=== PATIENT | female | born 1990 | race Caucasian/White ===

== ENCOUNTER 2021-10-03 09:19 | Outpatient (REF) | payer OTHER, SELFPAY ==
--- NOTE | 2021-10-03 13:19 | MHC.AU.HAS ---
Hearing Aid Evaluation Date of Visit: 10/03/21 Historical Information: Description of Hearing: Right Ear - Normal hearing thresholds 250, 500, 4000, and 6000 Hz with borderline normal to mild sensorineural hearing loss 8029-4238 and 8000 Hz. Left Ear - Normal hearing levels 250, 500, and 4000 Hz with borderline normal to mild sensorineural hearing loss 8364-8381 and 4477-8402 Hz. Current personal amplification information, if applicable: NONE Summary: Patient was assessed by ENT of 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 Hearing Aid Prescription: Based on the individual?s shared listening needs, communication environments, dexterity, desire for connectivity, and personal preferences, the following prescription for amplification has been made: Right ear: Archeology Professor: ReSound Model: ReSound One 7 [id number] Battery Size: Rechargeable Color: Black Wafer Mounter: #1 standard M&AMARA Type of Dome: Small Open Left ear: Left ear prescription to be same as Right Hearing Aid above: Archeology Professor: ReSound Model: ReSound One 7 [id number] Battery Size: Rechargeable Color: Black Wafer Mounter: #1 standard M&AMARA Type of Dome: Small Open Plan of Care: Patient wishes to purchase hearing aids as prescribed Action Taken/Action Needed: Medical Clearance from ENT in chart Hearing Instrument Fitting to be scheduled when materials arrive Primary Diagnosis: H90.3 Bilateral Sensorineural Hearing Loss Signature:Provider: Sherwin Juarez, YANET-A
== END 2021-10-03 09:20 | disposition home or self-care (01) ==
LOC: HO.HAP 09:19
PROVIDERS: Visit Provider Internal Medicine
DX: Z46.1 Encounter for fitting and adjustment of hearing aid (principal); H90.3 Sensorineural hearing loss, bilateral
CPT/HCPCS: 92591

== ENCOUNTER 2021-10-17 09:23 | Outpatient (REF) | payer OTHER, SELFPAY | END 2021-10-17 09:24 | disposition home or self-care (01) | LOC: HO.HAP 09:23 | PROVIDERS: Visit Provider Otolaryngology | DX: Z46.1 Encounter for fitting and adjustment of hearing aid (principal); H90.3 Sensorineural hearing loss, bilateral | CPT/HCPCS: V5011; V5020; V5160; V5261 ==

== ENCOUNTER 2021-10-18 11:18 | Outpatient (REF) | payer OTHER, SELFPAY | END 2021-10-18 11:19 | disposition home or self-care (01) | LOC: HO.HAP 11:18 | PROVIDERS: Visit Provider Internal Medicine | DX: Z13.89 Encounter for screening for other disorder (principal) ==

== ENCOUNTER → 2022-07-10 09:03 | Outpatient (BNVA) | payer OTHER, SELFPAY | PROVIDERS: PCP Internal Medicine; Visit Provider Physician Assistant Medical | DX: Z13.89 Encounter for screening for other disorder (principal) | CPT/HCPCS: 29125; 73110; 99202; 99203 ==

== ENCOUNTER → 2022-07-11 10:56 | Outpatient (BNVA) | payer OTHER, SELFPAY | PROVIDERS: PCP Internal Medicine; Visit Provider Physician Assistant | DX: S60.211A Contusion of right wrist, initial encounter (principal) | CPT/HCPCS: 99212 ==

== ENCOUNTER → 2022-08-23 15:03 | Outpatient (BNVA) | payer OTHER, SELFPAY | PROVIDERS: PCP Internal Medicine; Visit Provider Physician Assistant Medical | DX: Z13.89 Encounter for screening for other disorder (principal) | CPT/HCPCS: 99213 ==

== ENCOUNTER → 2023-04-10 10:27 | Outpatient (BNV) | payer OTHER, SELFPAY | PROVIDERS: PCP Internal Medicine; Visit Provider Internal Medicine | DX: D50.9 Iron deficiency anemia, unspecified (principal); E53.8 Deficiency of other specified B group vitamins | CPT/HCPCS: 99204 ==

== ENCOUNTER 2025-03-31 12:15 | Outpatient (AMB) | payer OTHER, SELFPAY ==
--- NOTE | 2025-03-31 12:34 | A.OFFVIS_ITS ---
VS Expanded 03/31/25 21:11 Height 5 ft 5 in Weight 167 lb BMI 27.8 Intake Visit Reasons: Vitamin D deficiency Allergies coconut Allergy (Verified 04/10/23 10:38) Vomiting diphenhydramine (From Benadryl) Allergy (Verified 01/27/23 12:53) vomiting escitalopram (From Lexapro) Allergy (Verified 04/10/23 10:38) Itching nectarine Allergy (Verified 04/10/23 10:38) Anaphylaxis peach Allergy (Verified 04/10/23 10:38) Anaphylaxis ferrous sulfate Adverse Reaction (Verified 04/10/23 10:38) Constipation latex Adverse Reaction (Verified 01/27/23 12:53) Itching Nutrition Presentation Details: Pt presents for MNT for vitamin D deficiency, Pt reports having diagnosis of celiac disease and needs education on diet concepts , has multiple questions related to gluten free food options Pt reports having hx of vitamin deficiencies (b, d, and iron) ALI-Kfoeqol-Fi.Jeor Equation Height: 5 ft 5 in Weight: 167 lb Resting Metabolic Rate: 1455.42 Calculated Activity Level: Mild Activity Calories Needed to Maintain Weight: 2001. Diagnosis Nutrition problem #1: food nutri know defi As related to (etiology) #1: diagnosis As evidenced by (sign/symptom) #1: knowledge deficit of diet [facility] Medical History (Updated 03/31/25 @ 21:13 by Mariia Stiles, RD, LDN) Iron deficiency anemia Vitamin D deficiency Vitamin B deficiency Anxiety and depression LILIYA III (cervical intraepithelial neoplasia III) Anemia Surgical History (Updated 04/10/23 @ 11:24 by Carolee Burciaga MD) H/O LEEP Family History (Updated 04/10/23 @ 11:18 by Marcelina Del Rosario) Father HTN (hypertension) Gluten free diet Mother HTN (hypertension) GERD (gastroesophageal reflux disease) Anemia Endometriosis Paternal Grandfather HTN (hypertension) Heart attack Maternal Grandmother HTN (hypertension) Breast cancer Maternal Uncle HTN (hypertension) Paternal Grandmother Diabetes Paternal Aunt Diabetes Family/Other Diabetes Paternal Grandfather Heart attack Social History (Updated 04/10/23 @ 10:37 by Marcelina Del Rosario) Household Members: Family Housing: Apartment Patient Tobacco Use Status: Never used Tobacco service: No Current occupational status: employed Assessment & Plan Assessment & Plan (1) Celiac disease: Code(s): K90.0 - Celiac disease Category: Medical Plan: Wt: 76 Kg ( 04/23 ) Est kcal needs as per MSJ: 1700 (40% carb, 30% protein/fat) Est fluid needs as per 25-30 ml/d: 2300 Est prot per day as per 1 g/kg bw: 80 Recommend fiber intake : 8-10 g per day and gradually increase to 25-28 g per day for women and 35-38 g for men or as tolerated Recommend sodium intake per day : less than 2300 mg Educated patient on: ( R = reviewed V = verbalizes understanding N/R = needs review N/A = not applicable * Gluten free diet concepts * Celiac disease, nutrient deficiencies and gluten free diet concepts Patient Instructions: Must avoid and eliminate all gluten containing foods and its derivatives (see list printed) Avoid cross contamination (including but not limited to using same cutting board, toaster, double dipping , frying in the same oil) Consider buying a bread maker see [address] [place] gluten free meal plan as reference Coding Level of Care Code Nutr Indiv Intake (10420) Diagnoses Celiac disease K90.0 Time Spent (min) 30
--- OUTSIDE RECORDS SUMMARY | 2025-03-31 13:29 | XMS_ITS ---
Author Name [facility] Organization Unknown Care Team Organization Name Specialty Phone Email Start Date End Da te [facility] VALERIE SCOTT Primary Care 06/06/2022
--- OUTSIDE RECORDS SUMMARY | 2025-03-31 13:29 | XMS_ITS | Clinical Summary ---
Author Organization [facility] [address] [place] [address] [place] [id number] Phone Care Team Providers Care Weave Room Supervisor Name Role Phone Laquita Gar MD Primary Care Provider [phone] Allergies Active Allergy Reactions Criticality Noted Date Comments Apple 10/12/2023 Escitalopram Oxalate Hives 12/31/2018 Food Allergy Formula Wheezing High 02/05/2023 nectarine Latex Hives 06/11/2012 Other Hives,Nausea And Vomiting 06/11/2012 Codeine Phospate; Benadryl Medications syringe w-needle,disposab, 3 mL (BD INTEGRA SYRINGE MISC) DIRECTED 06/13/20 23 Active blood-glucose meter kit 1 (one) time each day. 07/18/20 23 Active FREESTYLE LANCETS MISC 1 (one) time each day. 07/18/20 23 Active blood sugar diagnostic (FreeStyle Lite Strips) test strip 1 (one) time each day. 07/18/20 23 Active cyanocobalamin (VITAMIN B-12) 1,000 mcg/mL injection Inject 1 mL (1,000 mcg total) into the shoulder, thigh, or buttocks every 30 (thirty) days. Vitamin B12 1000 mcg q week x 4 weeks then q month 04/10/20 23 Active EPINEPHrine (EpiPen 2-Kameron) 0.3 mg/0.3 mL injection Inject 0.3 mL (0.3 mg total) into the thigh if needed for anaphylaxis. 2-pack. Fill with whichever brand is covered by insurance. 02/06/20 23 Active levonorgestreL (Mirena) 21 mcg/24 hr (8 yrs) 52 mg IUD by intrauterine route. Active meclizine (ANTIVERT) 25 mg tablet Take 1 tablet (25 mg total) by mouth 1 (one) time each day if needed (vertigo). 02/11/20 24 Active fluticasone propionate (FLONASE) 50 mcg/actuation nasal spray Administer 2 sprays into each nostril 1 (one) time each day. Shake gently. Before first use, prime pump. After use, clean tip and replace cap. Active scopolamine (TRANSDERM-SCOP) 1 mg over 3 days patch 3 day Apply 1 patch topically every 3rd (third) day. Can cause drowsiness- do not drive or operate heavy machinery 5 patch 07/04/20 24 Active cholecalciferol (VITAMIN D-3) 1,250 mcg (50,000 unit) capsule Take 1 capsule (50,000 Units total) by mouth 1 (one) time per week. 12 capsule 08/14/19 25 Active ondansetron ODT (ZOFRAN-ODT) 4 mg disintegrating tablet Dissolve 1 tablet (4 mg total) on top of the tongue every 8 (eight) hours if needed for nausea or vomiting. 30 tablet 1 11/13/19 25 Active multivitamin with iron-minerals 9 mg iron/15 mL liquid Take 15 mL by mouth 1 (one) time each day. Active polycarbophil (FIBERCON) 625 mg tablet Take by mouth 1 (one) time each day. Active esomeprazole (NexIUM) [address] capsule Take 1 capsule (20 mg total) by mouth 2 (two) times a day. Do not open capsule. 60 each 3 12/24/19 25 026 Active omeprazole (PriLOSEC) [address] capsule Take 1 capsule (20 mg total) by mouth 1 (one) time each day. Do not crush or chew. 30 each 3 12/24/19 25 026 Active loratadine (CLARITIN) 10 mg tablet TAKE 1 TABLET BY MOUTH EVERY DAY 90 tablet 1 01/28/20 25 Active Active Problems Problem Noted Date Diagnosed Date Gastroesophageal reflux disease 08/13/2024 Right upper quadrant pain 05/05/2024 Nausea 05/05/2024 Prediabetes 06/12/2023 B12 deficiency 06/12/2023 Vitamin D deficiency 09/17/2018 Palpitations 10/21/2017 Overview (05/05/2024): Holter monitor (10/17/17): NSR, with sinus bradycardia, and sinus arrhythmia, HR range 41-152 bpm , avg 69 BPM. Occasinal PAC's with rare atrial pairs. No PVC's. Anxiety and depression 08/22/2016 LILIYA III (cervical intraepithelial neoplasia III) 02/12/2015 Overview (05/05/2024): Last PAP 01/2020 ACUS +ve HPV Encounters Date Type Department Care Team Description 02/27/2025 9:30 AM EDT Office Visit Orthopedic Surgery - [place] [address] [place] [address] Evangelina Butterfield PA Right elbow pain (Primary Dx) 02/24/2025 Telephone Gastroenterology - [place] [address] [place] [address] Jesi Pena MA from Last 3 Months Immunizations Name Administration Dates Next Due DTP 12/06/2001, 5,10/01/1991,1990,1990,1990 [id number]-[id number] (Pentacel) 2mo to less than 5yo 07/16/1991,01/07/1991,1990,1990 HPV, Quadrivalent 04/23/2007,12/25/2006,10/26/19 07 Hepatitis B Pediatric (Enger ix B; Recombivax HB) to less than 20 yo 11/13/2000,11/01/1999,09/27/1999 IPV Inactivated polio (Ipol) 6wks and older 09/06/1994,10/01/1991,1990,1989 Influenza Quadravalent, MDCK , 0.5ml, preservative free (Flucelvax) 6mo and older 10/18/2018 Influenza trivalent, with preservative (Fluzone; Afluria) 6mo and older 06/03/2008 Influenza, Unspecified 06/11/2023,09/13/2016,06/2016 MMR, measles mumps and rubel la Live (Priorix; M-M-R II) 12mo and older 09/06/1994,07/16/1991 PPD Test 02/12/2015,10/02/2012 Pfizer SARS-CoV-2 COVID-19, mRNA, LNP-S, preservative free 08/12/2021,07/19/2021 Tdap Tetanus diptheria acell ular pertussis (Boostrix; Adacel) 7yo and older 06/03/2011 Surgical History Surgery Date Site/Laterality Comments OTHER SURGICAL HISTORY PROCEDURE: CERVICAL BIOPSY [facility] PATHOLOGY EXAM OTHER SURGICAL HISTORY PROCEDURE: CERVICAL LEEP CONE BIOPSY [facility] PATHOLOGY EX; COMMENT: 2018 Medical History Medical History Date Comments Carcinoma in situ of cervix uteri DX:Carcinoma in situ of cervix uteri; COMMENT: removed with biopsy, receives 6 month paps DX:; CO MMENT: 17 weeks Anxiety state DX:Anxiety state Depressive disorder DX:Depressiv e disorder Nausea DX:Nausea Right upper quadrant pain DX:Rig ht upper quadrant pain Right upper quadrant pain DX:Rig ht upper quadrant pain Nausea and vomiting DX:Nausea an d vomiting Gastroesophageal reflux disease 08/13/2024 Allergic rhinitis Headache HL (hearing loss) Family History Medical History Relation Name Comments Mental illness Brother Magen bipolar Asthma Daughter 1 Laura Hypertension Father James gluten allergy Breast cancer Maternal Grandmother [place] Other cancer Mother thyroid ca, hys teroctomy, gastric bypass, htn, Diabetes Other mulitple aunts Lung cancer Paternal Grandfather cigaret te smoking Diabetes Paternal Grandmother Esmer Eczema Son Relation Name Status Comments Brother Magen Alive Daughter 1 Laura Alive Daughter 2 Alive Father James Alive Maternal Grandfather Alive Maternal Grandmother [place] Mother Alive Other Paternal Grandfather Paternal Grandmother Esmer Son Alive Social History Tobacco Use Types Packs/Day Years Used Date Smoking Tobacco: Former Cigarettes Q uit: 02/13/2012 Smokeless Tobacco: Never Tobacco Cessation:Counseling Given: Not Answered Alcohol Use Standard Drinks/Week Comments No 0 (1 standard drink = 0.6 oz pur e alcohol) Housing Instability Answer Date Recorde d Are you worried that in the next 2 months you may not have stable housing? No 12/02/2024 Food Access & Nutrition Answer Date Rec orded Do you have access to a vari ety of food including fruits and vegetables? Yes 12/02/2024 Access to Healthcare Answer Date Record ed Within the last 3 months, ho w many times did you visit the emergency department for your medical care? 0 12/02/2024 Health Literacy Answer Date Recorded How often do you need to hav e someone help you when you read instructions, pamphlets, or other written material from your doctor or pharmacy? Never 12/02/2024 Caregiver: How often do you need to have someone help you when you read instructions, pamphlets, or other written material from your doctor or pharmacy? Not on file 12/02/2024 Financial Risk Answer Date Recorded How hard is it for you to pa y for the very basics like food, housing, medical care, and air conditioning / heating? Not very hard 12/02/2024 Transportation Answer Date Recorded Has the lack of transportati on kept you from meetings, work, or from getting things needed for daily living? No Has the lack of transportati on kept you from medical appointments or from getting medications? No 12/02/2024 Social Isolation Answer Date Recorded How often do you feel lonely or isolated from th ose around you? Never 12/02/2024 Food Risk Answer Date Recorded Within the past 12 months we worried whether our food would run out before we got money to buy more. Never true 12/02/2024 Within the past 12 months th e food we bought just didn't last and we didn't have money to get more. Never true 12/02/2024 Dependent Care Answer Date Recorded Do you need help finding or paying for care for your loved ones. For example, child day care provider or elderly care for an older adult? No 12/02/2024 Education Answer Date Recorded Do you think completing more education or training, like finishing a GED, going to college, or learning a trade, would be helpful for you? No 12/02/2024 Employment and Income Answer Date Recor ded During the last four weeks, have you been actively looking for work? No 12/02/2024 Living Situation Answer Date Recorded What is your living situation? 0 12/02/2024 Comments No Sex and Gender Information Value Date Recorded Sex Assigned at Not on file Legal Sex Female 8:26 PM EST Gender Identity Not on file Sexual Orientation Not on file Obstetrics History Last Filed Vital Signs Vital Sign Reading Time Taken Comments Blood Pressure 108/62 12/11/2024 10:26 AM EDT Pulse 68 12/02/2024 11:14 AM EDT Temperature 36.6 C (97.8 F) 12/02/2024 11:14 AM EDT Respiratory Rate 14 12/02/2024 11:14 AM EDT Oxygen Saturation 97% 12/02/2024 11:14 AM EDT Inhaled Oxygen Concentration - - Weight 75.8 kg (167 lb) 12/11/2024 10:26 AM EDT Height 165.1 cm (5' 5 ) 12/11/2024 10:26 AM EDT Body Mass Index 27.79 12/11/2024 10:26 AM EDT Plan of Treatment Health Maintenance Due Date Last Done Comments Cervical Cancer Screening: Pap Smear 02/03/2023 02/04/2020 COVID-19 Vaccine ( season) 2025 08/12/2021, 07/19/2021 Influenza Vaccine (#1) 2025 , 06/11/2023, 07/27/2020, Additional history exists Social Influencers of Health Screening 12/02/2025 12/02/2024 Cholesterol Screening (Lipid Panel) 02/06/2028 02/05/2023 DTaP,Tdap,and Td Vaccines (9 - Td or Tdap) 11/19/2030 11/19/2020, 06/03/2011, 12/06/2001, Additional history exists HIB Vaccines Completed 07/16/1991, 06/29, 01/07/1991, Additional history exists IPV Vaccines Completed 09/06/1994, 10/1991, 07/16/1991, Additional history exists MMR Vaccines Completed 09/06/1994, 07/16/1991 Hepatitis B Vaccines Completed 11/13/2000, 11/01/1999, 09/27/1999 HPV Vaccines Completed 04/23/2007, 11/28, 10/25/2006 HIV Screening Completed 06/29/2016 Hepatitis C Screening Completed 06/29/2016 Depression Screening Completed 12/02/2024, 12/12/19 24 Hepatitis A Vaccines Aged Out No long er eligible based on patient's age to complete this topic Meningococcal ACWY Vaccine Aged Out N o longer eligible based on patient's age to complete this topic Meningococcal B Vaccine Aged Out No l onger eligible based on patient's age to complete this topic Pneumococcal Vaccine: Pediatrics (0 to 5 Years) and At-Risk Patients (6 to 49 Years) Aged Out No longer eligible based on patient's age to complete this topic RSV Immunization Patients Under 20 months Aged Out No longer eligible based on patient's age to complete this topic Varicella Vaccines Aged Out No longer eligible based on patient's age to complete this topic Procedures Procedure Name Priority Date/Time Associated Diagnosis Comments XR ELBOW 3+ VIEWS RIGHT Routine 02/27/2025 9:27 AM EDT Right elbow pain DEPRESSION SCREENING Routine 12/12/2023 LIPID PANEL Routine 02/05/2023 PAP SMEAR Routine 02/04/2020 HEPATITIS C SCREENING Routine 06/29/2016 HIV SCREENING Routine 06/29/2016 from Last 3 Months or Most Recently Relevant to Health Maintenance Results * XR Elbow 3+ Views Right (02/27/2025 9:27 AM EDT) Anatomical Region Laterality Modality Upper Extremities, Elbow Right Compute d Radiography Narrative 02/27/2025 12:53 PM EDT Date of Visit: 02/27/2025 Reason for visit: Right elbow pain Views: AP, lateral, oblique right elbow Comparison: None Findings: No fracture, dislocation or lytic lesions. No calcifications. Normal radiocapitellar normal relationships. No effusion or soft tissue swelling Impression: Normal right elbow radiograph Evangelina VERMA IMG XR PROCEDURES Final Resul t * Depression Screening (12/12/2023) Depression Screening Abstracted Historical Provider MD HEALTH MAINTENANCE Final Result * Lipid panel (02/05/2023) LDL/HDL Ratio 3 0 - 4 Triglycerides 78 0 - 150 mg/dL Cholesterol 151 0 - 200 mg/dL HDL 53 >=40 mg/dL LDL Cholesterol 83 0 - 100 mg/dL Blood Venous blood specimen / Unknown Result [facility] Provider LAB BLOOD ORDERABLES Myranda l Result * Pap Smear (02/04/2020) Pathologist [facility] Pap smear No interpretation , abstracted [facility] Provider HEALTH MAINTENANCE Final Result * HIV Screening (06/29/2016) [facility] HIV Screening Abstracted [facility] Provider HEALTH MAINTENANCE Final Result * Hepatitis C Screening (06/29/2016) Pathologist [facility] Hepatitis C Screening Abstracted [facility] Provider HEALTH MAINTENANCE Final Result from Last 3 Months or Most Recently Relevant to Health Maintenance Insurance [facility] [employer] Care Teams Weave Room Supervisor Relationship Specialty Start Date End Date Laquita Gar MD [address] [place] [phone] PCP - General Internal Medicine 07/02/24
[2025-03-31 21:11] VITALS: BMI 27.8
[2025-03-31 21:16] VITALS: BMI 27.8
== END 2025-03-31 13:18 | disposition home or self-care (01) ==
LOC: HO.ENCR 12:15
PROVIDERS: PCP Internal Medicine; Visit Provider Dietitian, Registered
DX: K90.0 Celiac disease (principal)

== ENCOUNTER → 2025-03-31 12:15 | Outpatient (BNVA) | payer OTHER, SELFPAY | PROVIDERS: PCP Internal Medicine; Visit Provider Dietitian, Registered | DX: K90.0 Celiac disease (principal) | CPT/HCPCS: 97802 ==